=== PATIENT | female | born 1980 | race Caucasian/White ===

== ENCOUNTER 2016-11-20 12:56 | Emergency (ER) | payer MEDICAID ==
[2016-07-01 17:39] VITALS: BMI 28.7
[~2016-11-20 12:56] MED LIST: ESTRACE2 MG PO; HYDROCODON-ACE1 EAC7 PO; HYDROCODONE-APA1 TAB PO; KLONOPIN1 MG PO; LUNESTA1 MG PO; PROZAC20 MG PO; XANAX0.5 MG PO
[2016-11-20 13:49] LABS: BASOPHILS 0.3 % (0.0-2.0); EOSINOPHILS 1.3 % (0-7); HEMATOCRIT 39.9 % (36.0-48.0); HEMOGLOBIN 13.8 g/dL (12-16); IMMATURE GRANULOCYTES 0.3 % (0-5); LYMPHOCYTES 38.5 % (15-50); MCH 30.8 pg (26.0-34.0); MCHC 34.6 g/dL (31.0-37.0); MCV 89.1 fL (80.0-100.0); MEAN PLATELET VOLUME 9.6 fL (7.4-10.4); MONOCYTES 6.9 % (2-11); NEUTROPHILS 52.7 % (40-80); PLATELET COUNT 225 10x3/uL (130-400); RBC 4.48 10x6/uL (4.00-5.40); RDW 12.1 % (11.5-14.5); WBC 3.9 10x3/uL (4.8-10.8)
[2016-11-20 14:08] LABS: CALC OSMOLALITY 274 mosm/kg (275-300); CALCIUM 9.2 mg/dL (8.5-10.1); CARBON DIOXIDE 28.5 mmol/L (21.0-32.0); CHLORIDE - SERUM 103 mmol/L (98-107); CREATININE - SERUM 0.9 mg/dL (0.6-1.3); GLUCOSE 89 mg/dL (74-106); POTASSIUM - SERUM 3.7 mmol/L (3.5-5.1); SODIUM 139 mmol/L (136-145); TROPONIN-I < 0.017 ng/mL (0.000-0.060); UREA NITROGEN 6 mg/dL (7-18); eGFR NON AFRICAN AMERICAN 76 mL/min (90-120)
== END 2016-11-20 14:51 | disposition home or self-care (01) ==
LOC: D.ER 12:56
PROVIDERS: Nurse Practitioner Acute Care
DX: R07.9 Chest pain, unspecified (principal); F41.9 Anxiety disorder, unspecified; I95.9 Hypotension, unspecified

== ENCOUNTER → 2016-12-12 09:48 | Outpatient (CLI) | payer MEDICAID ==
[2016-07-01 17:39] VITALS: BMI 28.7
== END | disposition home or self-care (01) ==
LOC: D.CT 09:48
DX: R20.2 Paresthesia of skin (principal); R29.2 Abnormal reflex; R26.81 Unsteadiness on feet

== ENCOUNTER 2017-03-15 10:58 | Emergency (ER) | payer MEDICAID ==
[2016-07-01 17:39] VITALS: BMI 28.7
== END 2017-03-15 12:44 | disposition home or self-care (01) ==
LOC: D.ER 10:58
DX: M25.571 Pain in right ankle and joints of right foot (principal); I95.9 Hypotension, unspecified; Z95.0 Presence of cardiac pacemaker

== ENCOUNTER → 2017-06-10 17:01 | Outpatient (CLI) | payer BC ==
[2016-07-01 17:39] VITALS: BMI 28.7
== END | disposition home or self-care (01) ==
LOC: D.MAMMO 09:00
DX: Z80.3 Family history of malignant neoplasm of breast (principal); R22.2 Localized swelling, mass and lump, trunk

== ENCOUNTER → 2018-04-09 13:08 | Outpatient (CLI) | payer MEDICAID ==
[2016-07-01 17:39] VITALS: BMI 28.7
== END | disposition home or self-care (01) ==
LOC: D.US 13:08
DX: E04.1 Nontoxic single thyroid nodule (principal)

== ENCOUNTER 2018-09-30 10:33 | Inpatient (IN) | payer MEDICAID ==
[2018-09-30 12:02] LABS: HEMOGLOBIN 12.6 g/dL (12-16); MCH 31.2 pg (26.0-34.0); MCHC 34.1 g/dL (31.0-37.0); MCV 91.6 fL (80.0-100.0); MEAN PLATELET VOLUME 9.6 fL (7.4-10.4); RBC 4.04 10x6/uL (4.00-5.40); RDW 12.1 % (11.5-14.5)
[2018-09-30 12:06] LABS: PLATELET COUNT 132 10x3/uL (130-400)
[2018-09-30 12:13] LABS: ALBUMIN 2.9 g/dL (3.4-5.0); ALKALINE PHOSPHATASE 91 U/L (46-116); ALT (SGPT) 62 U/L (10-68); BILIRUBIN - TOTAL 0.47 mg/dL (0.2-1.3); CALC OSMOLALITY 284 mosm/kg (275-300); CALCIUM 7.9 mg/dL (8.5-10.1); CARBON DIOXIDE 28.6 mmol/L (21.0-32.0); CHLORIDE - SERUM 106 mmol/L (98-107); CREATININE - SERUM 0.7 mg/dL (0.6-1.3); GLUCOSE 85 mg/dL (74-106); POTASSIUM - SERUM 3.6 mmol/L (3.5-5.1); PROTEIN - SERUM 6.6 g/dL (6.4-8.2); SODIUM 144 mmol/L (136-145); UREA NITROGEN 11 mg/dL (7-18); eGFR NON AFRICAN AMERICAN > 90 mL/min (90-120)
[2018-09-30 13:21] LABS: EOSINOPHILS 2 % (0-7); LYMPHOCYTES 29 % (15-50); MONOCYTES 21 % (2-11); NEUTROPHILS 44 % (40-80); PLATELET ESTIMATE NORMAL
[2018-09-30 21:03] LABS: APPEARANCE HAZY (CLEAR); BILIRUBIN NEGATIVE (NEGATIVE); COLOR DK YELLOW (YELLOW); EPITHELIAL CELLS 0-5 /hpf (0-5); GLUCOSE NEGATIVE (NEGATIVE); KETONE NEGATIVE (NEGATIVE); NITRITE NEGATIVE (NEGATIVE); PROTEIN NEGATIVE (NEGATIVE); RED CELLS - URINE NONE SEEN /hpf (0-5); SPECIFIC GRAVITY 1.015 (1.005-1.020); WHITE CELLS - URINE 0-5 /hpf (0-5)
[2018-10-01 05:27] LABS: BASOPHILS 0 % (0-2); EOSINOPHILS 1.8 % (0-7); HEMATOCRIT 36.8 % (36.0-48.0); HEMOGLOBIN 12.1 g/dL (12-16); LYMPHOCYTES 50.6 % (15-50); MCH 30.4 pg (26.0-34.0); MCHC 32.9 g/dL (31.0-37.0); MCV 92.5 fL (80.0-100.0); MEAN PLATELET VOLUME 9.6 fL (7.4-10.4); MONOCYTES 17.6 % (2-11); PLATELET COUNT 132 10x3/uL (130-400); RBC 3.98 10x6/uL (4.00-5.40); RDW 11.9 % (11.5-14.5)
[2018-10-01 05:29] LABS: WBC 1.7 10x3/uL (4.8-10.8)
[2018-10-01 05:38] LABS: ALBUMIN 2.5 g/dL (3.4-5.0); ALKALINE PHOSPHATASE 73 U/L (46-116); ALT (SGPT) 53 U/L (10-68); AMYLASE - SERUM 28 U/L (25-115); BILIRUBIN - TOTAL 0.35 mg/dL (0.2-1.3); CALCIUM 7.5 mg/dL (8.5-10.1); CARBON DIOXIDE 27.4 mmol/L (21.0-32.0); CHLORIDE - SERUM 110 mmol/L (98-107); CREATININE - SERUM 0.8 mg/dL (0.6-1.3); GLUCOSE 87 mg/dL (74-106); LIPASE 63 U/L (73-393); POTASSIUM - SERUM 3.9 mmol/L (3.5-5.1); PROTEIN - SERUM 6.2 g/dL (6.4-8.2); SODIUM 145 mmol/L (136-145); eGFR NON AFRICAN AMERICAN 86 mL/min (90-120)
[2018-10-01 05:42] LABS: CALC OSMOLALITY 285 mosm/kg (275-300); UREA NITROGEN 7 mg/dL (7-18)
[2018-10-02 06:09] LABS: BASOPHILS 0.6 % (0-2); EOSINOPHILS 1.1 % (0-7); HEMATOCRIT 35.7 % (36.0-48.0); HEMOGLOBIN 12.1 g/dL (12-16); LYMPHOCYTES 54.8 % (15-50); MCH 30.9 pg (26.0-34.0); MCHC 33.9 g/dL (31.0-37.0); MCV 91.3 fL (80.0-100.0); MEAN PLATELET VOLUME 9.6 fL (7.4-10.4); MONOCYTES 8.5 % (2-11); PLATELET COUNT 138 10x3/uL (130-400); RBC 3.91 10x6/uL (4.00-5.40); RDW 12.2 % (11.5-14.5)
[2018-10-02 06:20] LABS: CALC OSMOLALITY 277 mosm/kg (275-300); CALCIUM 7.6 mg/dL (8.5-10.1); CARBON DIOXIDE 27.1 mmol/L (21.0-32.0); CHLORIDE - SERUM 107 mmol/L (98-107); CREATININE - SERUM 0.7 mg/dL (0.6-1.3); GLUCOSE 88 mg/dL (74-106); POTASSIUM - SERUM 3.5 mmol/L (3.5-5.1); SODIUM 141 mmol/L (136-145); UREA NITROGEN 7 mg/dL (7-18); eGFR NON AFRICAN AMERICAN > 90 mL/min (90-120)
[2018-10-02 06:23] LABS: WBC 1.8 10x3/uL (4.8-10.8)
[2018-10-03 06:36] LABS: CALC OSMOLALITY 278 mosm/kg (275-300); CALCIUM 7.8 mg/dL (8.5-10.1); CARBON DIOXIDE 28.2 mmol/L (21.0-32.0); CHLORIDE - SERUM 107 mmol/L (98-107); CREATININE - SERUM 0.8 mg/dL (0.6-1.3); GLUCOSE 96 mg/dL (74-106); POTASSIUM - SERUM 3.5 mmol/L (3.5-5.1); SODIUM 141 mmol/L (136-145); UREA NITROGEN 7 mg/dL (7-18); eGFR NON AFRICAN AMERICAN 86 mL/min (90-120)
[2018-10-03 06:55] LABS: BASOPHILS 0.1 % (0-2); EOSINOPHILS 0.2 % (0-7); HEMATOCRIT 35.8 % (36.0-48.0); HEMOGLOBIN 12.4 g/dL (12-16); IMMATURE GRANULOCYTES 0.1 % (0-5); LYMPHOCYTES 9.6 % (15-50); MCH 31.2 pg (26.0-34.0); MCHC 34.6 g/dL (31.0-37.0); MCV 90.2 fL (80.0-100.0); MEAN PLATELET VOLUME 9.5 fL (7.4-10.4); MONOCYTES 5.4 % (2-11); NEUTROPHILS 84.6 % (40-80); PLATELET COUNT 137 10x3/uL (130-400); RBC 3.97 10x6/uL (4.00-5.40)
[2018-10-03 06:56] LABS: WBC 14.2 10x3/uL (4.8-10.8)
[2018-10-04 06:02] LABS: BASOPHILS 0.1 % (0-2); EOSINOPHILS 0.5 % (0-7); HEMOGLOBIN 11.9 g/dL (12-16); IMMATURE GRANULOCYTES 0.2 % (0-5); LYMPHOCYTES 14.9 % (15-50); MCH 30.9 pg (26.0-34.0); MCV 90.9 fL (80.0-100.0); MEAN PLATELET VOLUME 9.4 fL (7.4-10.4); MONOCYTES 4.5 % (2-11); NEUTROPHILS 79.8 % (40-80); PLATELET COUNT 137 10x3/uL (130-400); RBC 3.85 10x6/uL (4.00-5.40); RDW 12.4 % (11.5-14.5)
[2018-10-04 06:06] LABS: WBC 10.6 10x3/uL (4.8-10.8)
[2018-10-04 06:20] LABS: CALC OSMOLALITY 280 mosm/kg (275-300); CALCIUM 7.2 mg/dL (8.5-10.1); CARBON DIOXIDE 27.7 mmol/L (21.0-32.0); CHLORIDE - SERUM 107 mmol/L (98-107); CREATININE - SERUM 0.8 mg/dL (0.6-1.3); GLUCOSE 100 mg/dL (74-106); POTASSIUM - SERUM 3.5 mmol/L (3.5-5.1); SODIUM 142 mmol/L (136-145); UREA NITROGEN 7 mg/dL (7-18); eGFR NON AFRICAN AMERICAN 86 mL/min (90-120)
[2018-10-04 11:12] LABS: ANA REFLEX - DIRECT Negative (Negative)
== END 2018-10-04 16:20 | disposition home or self-care (01) | DRG 392 ==
LOC: D.M3 10:33
PROVIDERS: Family Medicine; Internal Medicine Gastroenterology; Internal Medicine Hematology & Oncology; Internal Medicine Nephrology
DX: A08.4 Viral intestinal infection, unspecified (principal); D70.9 Neutropenia, unspecified; E03.9 Hypothyroidism, unspecified; Z95.0 Presence of cardiac pacemaker; K21.9 Gastro-esophageal reflux disease without esophagitis; M79.7 Fibromyalgia; E86.0 Dehydration

== ENCOUNTER → 2019-01-26 08:02 | Outpatient (CLI) | payer MEDICAID ==
[2018-10-01 15:13] VITALS: BMI 29.2
[~2019-01-26 08:02] MED LIST changes: +FLAGYL500 MG PO; +LEVOTHYROXINE125 MCG PO; +OXYCODONE-APAP1 T10 PO; +RANITIDINE HCL150 M1 PO
== END | disposition home or self-care (01) ==
LOC: D.US 08:02
PROVIDERS: ATTEND Family Medicine
DX: N61.1 Abscess of the breast and nipple (principal)

== ENCOUNTER 2019-05-31 11:21 | Observation (INO) | payer MEDICAID ==
[~2019-05-31] VITALS: Ht 157.5 cm; Wt 74.5 kg
--- NOTE | 2019-05-31 12:00 | NUR ---
PT RECIEVED VIA WHEELCHAIR FROM ADMISSION STAFF. IV SITED TO LEFT WRIST DRESSING CDI. VSS AT THIS TIME. DENIES NEEDS AND PAIN. RR EVEN AND UNLABORED. WILL CONTINUE TO MONITOR.
[2019-05-31] MEDS ORDERED: VITAMIN B-12100 MCG PO (12:05)
[2019-05-31] MEDS ORDERED: METOPROLOL TART25 MG PO (12:05)
[2019-05-31 12:11] VITALS: BP 102/60; Ht 157.5 cm; Wt 74.5 kg
[2019-05-31 13:55] LABS: BASOPHILS 0 % (0-2); EOSINOPHILS 1.2 % (0-7); HEMATOCRIT 37.4 % (36.0-48.0); HEMOGLOBIN 13.3 g/dL (12-16); IMMATURE GRANULOCYTES 0.3 % (0-5); LYMPHOCYTES 36.2 % (15-50); MCH 31.6 pg (26.0-34.0); MCHC 35.6 g/dL (31.0-37.0); MCV 88.8 fL (80.0-100.0); MEAN PLATELET VOLUME 9.5 fL (7.4-10.4); NEUTROPHILS 55.3 % (40-80); PLATELET COUNT 156 10x3/uL (130-400); RBC 4.21 10x6/uL (4.00-5.40); RDW 11.9 % (11.5-14.5); WBC 3.5 10x3/uL (4.8-10.8)
[2019-05-31 13:59] LABS: ALBUMIN 3.2 g/dL (3.4-5.0); ALKALINE PHOSPHATASE 46 U/L (46-116); ALT (SGPT) 25 U/L (10-68); AMYLASE - SERUM 43 U/L (25-115); BILIRUBIN - TOTAL 0.52 mg/dL (0.2-1.3); CALC OSMOLALITY 279 mosm/kg (275-300); CALCIUM 8.5 mg/dL (8.5-10.1); CARBON DIOXIDE 30.8 mmol/L (21.0-32.0); CHLORIDE - SERUM 106 mmol/L (98-107); CREATININE - SERUM 0.8 mg/dL (0.6-1.3); GLUCOSE 98 mg/dL (74-106); LIPASE 94 U/L (73-393); POTASSIUM - SERUM 3.8 mmol/L (3.5-5.1); PROTEIN - SERUM 6.5 g/dL (6.4-8.2); SODIUM 141 mmol/L (136-145); UREA NITROGEN 9 mg/dL (7-18); eGFR NON AFRICAN AMERICAN 85 mL/min (90-120)
[2019-05-31 15:06] LABS: APPEARANCE CLEAR (CLEAR); BILIRUBIN NEGATIVE (NEGATIVE); COLOR YELLOW (YELLOW); GLUCOSE NEGATIVE (NEGATIVE); KETONE NEGATIVE (NEGATIVE); NITRITE NEGATIVE (NEGATIVE); PROTEIN NEGATIVE (NEGATIVE); UROBILINOGEN NORMAL (NORMAL)
[2019-05-31 17:17] VITALS: BP 103/44
--- NOTE | 2019-05-31 19:40 | NUR ---
EVENING ROUNDS COMPLETE, PT LAYING IN BED, C/O NAUSEA, PRN ZOFRAN GIVEN IN L WRIST IV. VSS, NO SIGNS OF DISTRESS, PT DENIES ANY FURTHER NEEDS AT THIS TIME. WILL CONT WITH POC.
[2019-05-31 19:50] VITALS: BP 102/62
[2019-05-31 23:39] VITALS: BP 93/54
[2019-06-01 04:38] VITALS: BP 95/59
--- NOTE | 2019-06-01 04:43 | NUR ---
PT LAYING IN BED, NO C/O PAIN AT THIS TIME. NO SIGNS OF DISTRESS, CONT WITH POC.
[2019-06-01 07:23] VITALS: BP 96/56
[2019-06-01 07:57] LABS: HEMATOCRIT 33.1 % (36.0-48.0); MCH 32.3 pg (26.0-34.0); MCHC 36.3 g/dL (31.0-37.0); PLATELET COUNT 136 10x3/uL (130-400); RBC 3.72 10x6/uL (4.00-5.40); RDW 11.9 % (11.5-14.5); WBC 3.1 10x3/uL (4.8-10.8)
[2019-06-01 07:58] LABS: ALBUMIN 2.6 g/dL (3.4-5.0); ALKALINE PHOSPHATASE 32 U/L (46-116); ALT (SGPT) 19 U/L (10-68); BILIRUBIN - TOTAL 0.48 mg/dL (0.2-1.3); CALC OSMOLALITY 275 mosm/kg (275-300); CALCIUM 7.8 mg/dL (8.5-10.1); CARBON DIOXIDE 27.9 mmol/L (21.0-32.0); CHLORIDE - SERUM 107 mmol/L (98-107); CREATININE - SERUM 0.7 mg/dL (0.6-1.3); GLUCOSE 87 mg/dL (74-106); MAGNESIUM - SERUM 1.6 mg/dL (1.8-2.4); POTASSIUM - SERUM 3.6 mmol/L (3.5-5.1); PROTEIN - SERUM 5.8 g/dL (6.4-8.2); SODIUM 139 mmol/L (136-145); UREA NITROGEN 9 mg/dL (7-18); eGFR NON AFRICAN AMERICAN > 90 mL/min (90-120)
--- NOTE | 2019-06-01 08:18 | NUR ---
PT RESTING IN BED. SHIFT ASSESSMENT PERFORMED. VSS AND WNL. DENIES ANY NEEDS AT THIS TIME, WILL CONT TO FOLLOW POC
[2019-06-01 09:31] LABS: ANISOCYTOSIS OCC; EOSINOPHILS 2 % (0-7); LYMPHOCYTES 36 % (15-50); MONOCYTES 12 % (2-11); NEUTROPHILS 48 % (40-80); PLATELET ESTIMATE NORMAL
--- NOTE | 2019-06-01 13:48 | NUR ---
DISCHARGE INSTRUCTIONS REVIEWED WITH PT AND ALL QUESTIONS ANSWERED. PIV REMOVED WITH CATHTETER TIP INTACT. PT IS WAITING ON HER RIDE
--- NOTE | 2019-06-01 14:41 | NUR ---
ASSISTED PT TO FRONT OF HOSPITAL VIA WHEELCHAIR WHERE SHE LEFT WITH SPOUSE
== END 2019-06-01 14:42 | disposition home or self-care (01) ==
LOC: D.M3 11:21 → OBSVTIME 11:22 → D.M3 11:55
PROVIDERS: Emergency Medicine; ADMIT Family Medicine; ATTEND Family Medicine
DX: E86.0 Dehydration (principal); K58.9 Irritable bowel syndrome, unspecified; K21.9 Gastro-esophageal reflux disease without esophagitis; E03.9 Hypothyroidism, unspecified; F41.9 Anxiety disorder, unspecified; Z95.0 Presence of cardiac pacemaker

== ENCOUNTER → 2019-07-08 08:19 | Outpatient (CLI) | payer MEDICAID ==
[~2019-07-08 08:19] MED LIST changes: +METOPROLOL TART25 MG PO; +VITAMIN B-12100 MCG PO
--- NOTE | 2019-07-12 10:10 | EC ---
PATIENT:ANITRA VU DATE OF SERVICE: 07/08/19 SEX: F MEDICAL RECORD: [id number] DATE OF : [birth year] [facility] AGE OF PATIENT: 38 ADMISSION DATE: 07/08/19 REFERRING PHYSICIAN: INTERPRETING PHYSICIAN: MARIANO BUSH MD ECHOCARDIOGRAM REPORT ECHO CHARGES 4 ECHO COMPLETE Date: 07/08/19 CLINICAL DIAGNOSIS: HEART MURMUR ECHOCARDIOGRAPHIC MEASUREMENTS (adult normal given) AC root (d.<3.7cm) 3.3 cm LV Septum d (<1.2 cm> 1.1 cm Valve Excursion 2.0 cm LV Septum (systole) 1.3 cm Left Atria (s.<4.0cm> 3.0 cm LVPW d(<1.2cm) 1.1 cm RV (d.<2.3cm) 3.6 cm LVPW (sytole) 1.3 cm LV diastole(<5.6CM) 4.0 cm MV E-F(>70mm/sec) cm LV systole 2.9 cm LVOT Diameter 1.9 cm MV exc.(>10mm) 1.6 cm Est.ejection fraction (50-75%) % DOPPLER: LVIT cm/sec A 49.0 cm/sec E 62.0 cm/sec LA cm/sec RVSP 33 mmHg LVOT 95 cm/sec AOP1/2T m/s Asc. Ao 106 cm/sec RVOT 59 cm/sec RA cm/sec PA 75 cm/sec AV Gradient Peak 4.50 mmHg AV Mean 2.12 mmHg AV Area 3.3 cm MV Gradient Peak 2.33 mmHg MV Mean 0.82 mmHg MV Area cm COMMENTS: [employer]: [employer] Engineer: 1 Dr. Bush TAPE# PACS Pericardial Effusion N DATE OF SERVICE: FINDINGS: 1. Left ventricular chamber size is within normal limits. Left ventricular systolic function is normal at 60%. 2. Left atrium, right atrium, and right ventricular chamber sizes are within normal limits. 3. Valvular structures have normal structure and motion. 4. Doppler interrogation reveals mild mitral regurgitation, mild tricuspid regurgitation, no other valvular insufficiency or stenosis. Pulmonary systolic ECHOCARDIOGRAM REPORT [id number] ANITRA VU pressure is normal estimated 33 mmHg. 5. No evidence of pericardial effusion or left ventricular thrombus. TRANSINT:[id number] Voice Confirmation ID: [id number] DOCUMENT ID: [id number] MARIANO BUSH MD at 1010 CC: [id number] DICTATION DATE: 07/11/19 1038 ADVERTISING PHOTOGRAPHER: 07/11/19 1159 DEP CLI 07/08/19 [place] [id number] [place] [id number]
== END | disposition home or self-care (01) ==
LOC: D.HCCECHO 08:19 → D.HCCARDIO 08:30 → D.HCCECHO 08:30
PROVIDERS: ATTEND Internal Medicine Interventional Cardiology
DX: R01.1 Cardiac murmur, unspecified (principal)

== ENCOUNTER 2020-03-12 10:51 | Emergency (ER) | payer MEDICAID ==
[~2020-03-12] VITALS: Ht 157.5 cm; Wt 81.8 kg
[2020-03-12 10:57] VITALS: Ht 157.5 cm; Wt 81.8 kg
[2020-03-12] MEDS ORDERED: IBUPROFEN800 MG PO (11:03)
[2020-03-12] MEDS ORDERED: OMEPRAZOLE20 M1 PO (11:03)
[2020-03-12 12:51] VITALS: BP 97/60
== END 2020-03-12 12:50 | disposition home or self-care (01) ==
LOC: D.ER 10:51
DX: M54.5 Low back pain (principal); M54.31 Sciatica, right side; Z95.0 Presence of cardiac pacemaker; K21.9 Gastro-esophageal reflux disease without esophagitis

== ENCOUNTER → 2020-12-28 07:23 | Outpatient (CLI) | payer MEDICAID ==
[2020-09-10 08:32] VITALS: BMI 33.0
[~2020-12-28 07:23] MED LIST changes: +IBUPROFEN800 MG PO; +OMEPRAZOLE20 M1 PO
== END | disposition home or self-care (01) ==
LOC: D.CT 07:23
PROVIDERS: ATTEND Family Medicine
DX: R10.13 Epigastric pain (principal)